=== PATIENT | male | born 1970 | race African-American/Black ===

== ENCOUNTER 2021-11-26 13:35 | Inpatient (IN) | payer OTHER ==
[2021-11-26] MEDS ORDERED: MAGNESIUM HYDROX 2400MG/30ML ORAL SUSPENSION 30 ML CUP PO PRN (16:30)
[2021-11-26] MEDS ORDERED: BISMUTH SUBSALICYLATE 524 MG/30 ML PO PRN (16:30)
[2021-11-26] MEDS ORDERED: ONDANSETRON *ODT* 4 MG TABLET SL PRN (16:30)
[2021-11-26] MEDS ORDERED: MAGNESIUM CITRATE 300 ML BOTTLE PO PRN (16:30)
[2021-11-26] MEDS ORDERED: DICYCLOMINE HCL 10 MG CAPSULE PO PRN (16:30)
[2021-11-26] MEDS ORDERED: IBUPROFEN 600 MG TABLET (FP) PO PRN (16:30)
[2021-11-26] MEDS ORDERED: IBUPROFEN 400 MG TABLET (FP) PO PRN (16:30)
[2021-11-26] MEDS ORDERED: BENZOCAINE/MENTHOL (CHLORASEPTIC ) LOZENGE MM PRN (16:30)
[2021-11-26] MEDS ORDERED: LOPERAMIDE HCL 2 MG CAPSULE PO PRN (16:30)
[2021-11-26] MEDS ORDERED: MAG HYDROX/AL HYDROX/SIMETH 30 ML UNIT-DOSE CUP PO PRN (16:30)
[2021-11-26] MEDS ORDERED: ACETAMINOPHEN 325 MG TABLET (FP) PO PRN ×2 (16:30)
[2021-11-26] MEDS ORDERED: METHOCARBAMOL 500 MG TABLET PO PRN (16:30)
[2021-11-26] MEDS ORDERED: chlordiazePOXIDE HCL 25 MG CAPSULE PO PRN (16:30)
[2021-11-26 17:21] VITALS: BMI 25.0
[2021-11-26] MEDS ORDERED: hydrOXYzine PAMOATE 25 MG CAPSULE (FP) PO SCH (18:00)
[2021-11-26] MEDS: chlordiazePOXIDE HCL 25 MG CAPSULE PO SCH ×2 (19:20→22:35)
[2021-11-26] MEDS: MELATONIN 5 MG TABLETS PO SCH (22:35)
[2021-11-26] MEDS: THIAMINE HCL 100 MG TABLET (FP) PO SCH (22:35)
[2021-11-27] MEDS: chlordiazePOXIDE HCL 25 MG CAPSULE PO SCH ×4 (05:51→23:33)
[2021-11-27 10:28] LABS: HEMATOCRIT 37.2 % (35.4-49); HEMOGLOBIN 12.6 GM/dL (11.7-16.9); MCHC 33.9 g/dl (32.0-35.9); MEAN CELL VOLUME 82.6 fl (80-96); MEAN PLT VOLUME 7.6 fl (7.5-11.1); PLATELET COUNT 259 10^3/uL (134-434); RBC 4.51 M/mm3 (4.00-5.60); RDW 13.9 % (11.9-15.9); WHITE BLOOD COUNT 4.5 K/mm3 (4.0-10.0)
[2021-11-27] MEDS: PRENATAL VITAMINS W/ FOLIC ACID TABLET (FP) PO SCH (10:33)
[2021-11-27] MEDS: SULFAMETHOXAZOLE/TRIMETHOPRIM 800MG/160MG D.S. TABLET PO SCH (10:34)
[2021-11-27] MEDS: ESCITALOPRAM OXALATE 10 MG TABLET PO SCH (10:34)
[2021-11-27] MEDS: TAMSULOSIN HCL 0.4 MG CAP PO SCH (10:35)
[2021-11-27] MEDS: BICTEGRAV/EMTRICIT/TENOFOV (BIKTARVY) 50-200-25 MG TABLET PO SCH (10:35)
[2021-11-27 10:56] LABS: ALBUMIN 2.7 g/dl (3.4-5.0); BLOOD UREA NITROGEN 10.7 mg/dL (7-18); CALCIUM 8.7 mg/dL (8.5-10.1)
[2021-11-27] MEDS: CLOTRIMAZOLE 10 MG TROCHE PO SCH ×4 (10:56→23:33)
[2021-11-27 10:59] LABS: CREATININE 0.9 mg/dL (0.55-1.3)
[2021-11-27 11:01] LABS: BILIRUBIN,TOTAL 0.5 mg/dL (0.2-1); TOT PROT 6.8 g/dl (6.4-8.2)
[2021-11-27] MEDS: MELATONIN 5 MG TABLETS PO SCH (23:32)
[2021-11-27] MEDS: THIAMINE HCL 100 MG TABLET (FP) PO SCH (23:33)
[2021-11-28] MEDS: CLOTRIMAZOLE 10 MG TROCHE PO SCH ×5 (06:28→22:59)
[2021-11-28] MEDS: chlordiazePOXIDE HCL 25 MG CAPSULE PO SCH ×4 (06:28→23:00)
[2021-11-28] MEDS: BICTEGRAV/EMTRICIT/TENOFOV (BIKTARVY) 50-200-25 MG TABLET PO SCH (07:26)
[2021-11-28] MEDS: PRENATAL VITAMINS W/ FOLIC ACID TABLET (FP) PO SCH (11:09)
[2021-11-28] MEDS: ESCITALOPRAM OXALATE 10 MG TABLET PO SCH (11:12)
[2021-11-28] MEDS: SULFAMETHOXAZOLE/TRIMETHOPRIM 800MG/160MG D.S. TABLET PO SCH (11:12)
[2021-11-28] MEDS: TAMSULOSIN HCL 0.4 MG CAP PO SCH (11:12)
[2021-11-28] MEDS ORDERED: NYSTATIN 500,000 UNITS/5 ML SUSPENSION PO SCH (12:00)
[2021-11-28] MEDS: NYSTATIN 500,000 UNITS/5 ML SUSPENSION PO SCH ×2 (18:24→22:59)
[2021-11-28] MEDS: MELATONIN 5 MG TABLETS PO SCH (22:58)
[2021-11-28] MEDS: THIAMINE HCL 100 MG TABLET (FP) PO SCH (22:58)
[2021-11-29] MEDS ORDERED: chlordiazePOXIDE HCL 10 MG CAPSULE PO PRN
[2021-11-29] MEDS: chlordiazePOXIDE HCL 10 MG CAPSULE PO SCH ×5 (06:37→23:28)
[2021-11-29] MEDS: CLOTRIMAZOLE 10 MG TROCHE PO SCH ×5 (06:38→21:54)
[2021-11-29] MEDS: BICTEGRAV/EMTRICIT/TENOFOV (BIKTARVY) 50-200-25 MG TABLET PO SCH (07:28)
[2021-11-29] MEDS: PRENATAL VITAMINS W/ FOLIC ACID TABLET (FP) PO SCH (10:34)
[2021-11-29] MEDS: TAMSULOSIN HCL 0.4 MG CAP PO SCH (10:34)
[2021-11-29] MEDS: NYSTATIN 500,000 UNITS/5 ML SUSPENSION PO SCH ×2 (10:34→21:54)
[2021-11-29] MEDS: SULFAMETHOXAZOLE/TRIMETHOPRIM 800MG/160MG D.S. TABLET PO SCH (10:34)
[2021-11-29] MEDS: ESCITALOPRAM OXALATE 10 MG TABLET PO SCH (10:34)
[2021-11-29] MEDS: THIAMINE HCL 100 MG TABLET (FP) PO SCH (21:55)
[2021-11-29] MEDS: MELATONIN 5 MG TABLETS PO SCH (22:03)
[2021-11-30 06:37] VITALS: RESP 18
[2021-11-30] MEDS: CLOTRIMAZOLE 10 MG TROCHE PO SCH ×5 (07:03→22:18)
[2021-11-30] MEDS: chlordiazePOXIDE HCL 10 MG CAPSULE PO SCH ×2 (07:04→17:50)
[2021-11-30] MEDS: BICTEGRAV/EMTRICIT/TENOFOV (BIKTARVY) 50-200-25 MG TABLET PO SCH (07:04)
[2021-11-30] MEDS: PRENATAL VITAMINS W/ FOLIC ACID TABLET (FP) PO SCH (10:20)
[2021-11-30] MEDS: NYSTATIN 500,000 UNITS/5 ML SUSPENSION PO SCH ×2 (10:20→22:18)
[2021-11-30] MEDS: SULFAMETHOXAZOLE/TRIMETHOPRIM 800MG/160MG D.S. TABLET PO SCH (10:20)
[2021-11-30] MEDS: ESCITALOPRAM OXALATE 10 MG TABLET PO SCH (10:20)
[2021-11-30] MEDS: TAMSULOSIN HCL 0.4 MG CAP PO SCH (10:20)
[2021-11-30] MEDS: THIAMINE HCL 100 MG TABLET (FP) PO SCH (22:18)
[2021-11-30] MEDS: MELATONIN 5 MG TABLETS PO SCH (22:19)
[2021-12-01] MEDS ORDERED: chlordiazePOXIDE HCL 10 MG CAPSULE PO ONE (05:00)
[2021-12-01] MEDS: CLOTRIMAZOLE 10 MG TROCHE PO SCH ×5 (07:57→23:28)
[2021-12-01] MEDS: BICTEGRAV/EMTRICIT/TENOFOV (BIKTARVY) 50-200-25 MG TABLET PO SCH (07:58)
[2021-12-01] MEDS ORDERED: AZITHROMYCIN 600 MG TABLET PO SCH (10:00)
[2021-12-01] MEDS: SULFAMETHOXAZOLE/TRIMETHOPRIM 800MG/160MG D.S. TABLET PO SCH (11:13)
[2021-12-01] MEDS: TAMSULOSIN HCL 0.4 MG CAP PO SCH (11:13)
[2021-12-01] MEDS: ESCITALOPRAM OXALATE 10 MG TABLET PO SCH (11:13)
[2021-12-01] MEDS: NYSTATIN 500,000 UNITS/5 ML SUSPENSION PO SCH ×2 (11:14→23:28)
[2021-12-01] MEDS: PRENATAL VITAMINS W/ FOLIC ACID TABLET (FP) PO SCH (11:15)
[2021-12-01] MEDS: MELATONIN 5 MG TABLETS PO SCH (23:28)
[2021-12-01] MEDS: THIAMINE HCL 100 MG TABLET (FP) PO SCH (23:28)
[2021-12-02] MEDS ORDERED: chlordiazePOXIDE HCL 10 MG CAPSULE PO ONE (06:00)
[2021-12-02] MEDS: CLOTRIMAZOLE 10 MG TROCHE PO SCH (07:03)
[2021-12-02] MEDS: BICTEGRAV/EMTRICIT/TENOFOV (BIKTARVY) 50-200-25 MG TABLET PO SCH (07:04)
[2021-12-02 09:08] VITALS: BP 134/75; PULSE 95; TEMP 97.3
[2021-12-02] MEDS: TAMSULOSIN HCL 0.4 MG CAP PO SCH (09:27)
[2021-12-02] MEDS: SULFAMETHOXAZOLE/TRIMETHOPRIM 800MG/160MG D.S. TABLET PO SCH (09:27)
[2021-12-02] MEDS: PRENATAL VITAMINS W/ FOLIC ACID TABLET (FP) PO SCH (09:28)
[2021-12-02] MEDS: ESCITALOPRAM OXALATE 10 MG TABLET PO SCH (09:28)
[2021-12-02] MEDS: NYSTATIN 500,000 UNITS/5 ML SUSPENSION PO SCH (09:28)
== END 2021-12-02 09:36 | disposition home or self-care (01) | DRG 774 ==
LOC: YASAS 13:35 → Y3N 16:51
PROVIDERS: ADMIT Allergy & Immunology; ATTEND Surgery
PROC: HZ2ZZZZ Detoxification Services for Substance Abuse Treatment (ICD-10-PCS; principal; 2021-11-26)
DX: F10.230 Alcohol dependence with withdrawal, uncomplicated (principal); F14.20 Cocaine dependence, uncomplicated; F32.A Depression, unspecified; Z21 Asymptomatic human immunodeficiency virus [HIV] infection status; B37.0 Candidal stomatitis; N40.0 Benign prostatic hyperplasia without lower urinary tract symptoms; R73.9 Hyperglycemia, unspecified; Z20.822 Contact with and (suspected) exposure to COVID-19; Z86.59 Personal history of other mental and behavioral disorders; Z91.410 Personal history of adult physical and sexual abuse
CPT/HCPCS: 36415; 80053; 82947; 83036; 85027; 86780; 87811; 93005; 93010; C9803-CS; U0003; U0005

== ENCOUNTER 2021-12-17 13:09 | Inpatient (IN) | payer OTHER ==
[2021-12-17 15:03] VITALS: BMI 23.6
[2021-12-18] MEDS ORDERED: BENZOCAINE/MENTHOL (CHLORASEPTIC ) LOZENGE MM PRN (00:48)
[2021-12-18] MEDS ORDERED: guaiFENesin 200 MG/10 ML 10 ML UNIT-DOSE CUPS PO PRN (00:48)
[2021-12-18] MEDS ORDERED: NICOTINE POLACRILEX 2 MG GUM BUC PRN (00:48)
[2021-12-18] MEDS ORDERED: IBUPROFEN 400 MG TABLET (FP) PO PRN (00:48)
[2021-12-18] MEDS ORDERED: P-EPHED 60MG/TRIPROLIDI 2.5MG TABLET PO PRN (00:48)
[2021-12-18] MEDS ORDERED: MAGNESIUM CITRATE 300 ML BOTTLE PO PRN (00:48)
[2021-12-18] MEDS ORDERED: MAG HYDROX/AL HYDROX/SIMETH 30 ML UNIT-DOSE CUP PO PRN (00:48)
[2021-12-18] MEDS ORDERED: LOPERAMIDE HCL 2 MG CAPSULE PO PRN (00:48)
[2021-12-18] MEDS ORDERED: MAGNESIUM HYDROX 2400MG/30ML ORAL SUSPENSION 30 ML CUP PO PRN (00:48)
[2021-12-18] MEDS ORDERED: NICOTINE 14 MG/24 HOURS TOPICAL PATCH TD SCH (10:00)
[2021-12-18] MEDS: PRENATAL VITAMINS W/ FOLIC ACID TABLET (FP) PO SCH (10:36)
[2021-12-18] MEDS: MELATONIN 5 MG TABLETS PO SCH (21:35)
[2021-12-18] MEDS: THIAMINE HCL 100 MG TABLET (FP) PO SCH (21:35)
[2021-12-19] MEDS: PRENATAL VITAMINS W/ FOLIC ACID TABLET (FP) PO SCH (10:20)
[2021-12-19] MEDS: MUPIROCIN 2% TOPICAL OINTMENT 22 GM TUBE TP SCH ×2 (16:06→21:47)
[2021-12-19] MEDS: THIAMINE HCL 100 MG TABLET (FP) PO SCH (21:47)
[2021-12-19] MEDS: MELATONIN 5 MG TABLETS PO SCH (21:47)
[2021-12-20] MEDS: PRENATAL VITAMINS W/ FOLIC ACID TABLET (FP) PO SCH (10:25)
[2021-12-20] MEDS: ACETAMINOPHEN 325 MG TABLET (FP) PO PRN (10:26)
[2021-12-20] MEDS: MUPIROCIN 2% TOPICAL OINTMENT 22 GM TUBE TP SCH ×3 (10:28→21:18)
[2021-12-20 11:34] LABS: HEMATOCRIT 41.9 % (35.4-49); HEMOGLOBIN 13.4 GM/dL (11.7-16.9); MCH 27.1 pg (25.7-33.7); MCHC 31.9 g/dl (32.0-35.9); MEAN CELL VOLUME 84.9 fl (80-96); MEAN PLT VOLUME 8.4 fl (7.5-11.1); PLATELET COUNT 292 10^3/uL (134-434); RBC 4.93 M/mm3 (4.00-5.60); RDW 14.5 % (11.9-15.9); WHITE BLOOD COUNT 4.9 K/mm3 (4.0-10.0)
[2021-12-20 11:49] LABS: CALCIUM 9.1 mg/dL (8.5-10.1)
[2021-12-20 11:52] LABS: ALBUMIN 2.9 g/dl (3.4-5.0); BLOOD UREA NITROGEN 12.2 mg/dL (7-18)
[2021-12-20 11:54] LABS: CREATININE 0.9 mg/dL (0.55-1.3)
[2021-12-20 11:56] LABS: BILIRUBIN,TOTAL 0.4 mg/dL (0.2-1)
[2021-12-20 12:54] LABS: ANISOCYTOSIS 2+; MACROCYTOSIS 0; TEAR DROP CELLS 1+
[2021-12-20] MEDS: hydrOXYzine PAMOATE 25 MG CAPSULE (FP) PO PRN (21:18)
[2021-12-20] MEDS: THIAMINE HCL 100 MG TABLET (FP) PO SCH (21:18)
[2021-12-20] MEDS: MELATONIN 5 MG TABLETS PO SCH (21:18)
[2021-12-21] MEDS: MUPIROCIN 2% TOPICAL OINTMENT 22 GM TUBE TP SCH ×3 (01:00→22:03)
[2021-12-21] MEDS: ACETAMINOPHEN 325 MG TABLET (FP) PO PRN (09:33)
[2021-12-21] MEDS: PRENATAL VITAMINS W/ FOLIC ACID TABLET (FP) PO SCH (09:33)
[2021-12-21] MEDS: hydrOXYzine PAMOATE 25 MG CAPSULE (FP) PO PRN (22:03)
[2021-12-21] MEDS: MELATONIN 5 MG TABLETS PO SCH (22:03)
[2021-12-21] MEDS: THIAMINE HCL 100 MG TABLET (FP) PO SCH (22:03)
[2021-12-22] MEDS: MUPIROCIN 2% TOPICAL OINTMENT 22 GM TUBE TP SCH ×3 (06:22→21:39)
[2021-12-22] MEDS: PRENATAL VITAMINS W/ FOLIC ACID TABLET (FP) PO SCH (10:26)
[2021-12-22] MEDS: ACETAMINOPHEN 325 MG TABLET (FP) PO PRN (10:27)
[2021-12-22] MEDS: SULFAMETHOXAZOLE/TRIMETHOPRIM 800MG/160MG D.S. TABLET PO SCH (14:52)
[2021-12-22] MEDS: TAMSULOSIN HCL 0.4 MG CAP PO SCH (14:52)
[2021-12-22] MEDS: BICTEGRAV/EMTRICIT/TENOFOV (BIKTARVY) 50-200-25 MG TABLET PO SCH (14:52)
[2021-12-22] MEDS: AZITHROMYCIN 600 MG TABLET PO SCH (14:53)
[2021-12-22] MEDS: RILPIVIRINE HCL 25 MG TABLET PO SCH (14:54)
[2021-12-22] MEDS: THIAMINE HCL 100 MG TABLET (FP) PO SCH (21:39)
[2021-12-22] MEDS: MELATONIN 5 MG TABLETS PO SCH (21:40)
[2021-12-23] MEDS: MUPIROCIN 2% TOPICAL OINTMENT 22 GM TUBE TP SCH ×3 (07:37→22:21)
[2021-12-23] MEDS: PRENATAL VITAMINS W/ FOLIC ACID TABLET (FP) PO SCH (10:39)
[2021-12-23] MEDS: RILPIVIRINE HCL 25 MG TABLET PO SCH (10:39)
[2021-12-23] MEDS: TAMSULOSIN HCL 0.4 MG CAP PO SCH (10:39)
[2021-12-23] MEDS: SULFAMETHOXAZOLE/TRIMETHOPRIM 800MG/160MG D.S. TABLET PO SCH (10:39)
[2021-12-23] MEDS: BICTEGRAV/EMTRICIT/TENOFOV (BIKTARVY) 50-200-25 MG TABLET PO SCH (10:39)
[2021-12-23 11:25] LABS: EPI CELLS 5 /uL (0-25.1); HYALINE CASTS 0 /uL (0-3.1); URINE APPEARANCE CLEAR; URINE BACTERIA 42 /uL (0-1359); URINE BILIRUBIN NEGATIVE (NEGATIVE); URINE COLOR YELLOW; URINE GLUCOSE (UA) NEGATIVE (NEGATIVE); URINE KETONE NEGATIVE (NEGATIVE); URINE LEUK ESTERASE TRACE (NEGATIVE); URINE NITRITE NEGATIVE (NEGATIVE); URINE PROTEIN NEGATIVE (NEGATIVE); URINE RBC 1 /uL (0-23.9); URINE UROBILINOGEN 0.2 mg/dL (0.2-1.0); URINE WBC 9 /uL (0-25.8)
[2021-12-23] MEDS: THIAMINE HCL 100 MG TABLET (FP) PO SCH (21:06)
[2021-12-23] MEDS: MELATONIN 5 MG TABLETS PO SCH (21:07)
[2021-12-24] MEDS: MUPIROCIN 2% TOPICAL OINTMENT 22 GM TUBE TP SCH ×3 (07:41→22:16)
[2021-12-24] MEDS: PRENATAL VITAMINS W/ FOLIC ACID TABLET (FP) PO SCH (10:37)
[2021-12-24] MEDS: RILPIVIRINE HCL 25 MG TABLET PO SCH (10:37)
[2021-12-24] MEDS: BICTEGRAV/EMTRICIT/TENOFOV (BIKTARVY) 50-200-25 MG TABLET PO SCH (10:37)
[2021-12-24] MEDS: SULFAMETHOXAZOLE/TRIMETHOPRIM 800MG/160MG D.S. TABLET PO SCH (10:38)
[2021-12-24] MEDS: TAMSULOSIN HCL 0.4 MG CAP PO SCH (10:39)
[2021-12-24] MEDS: THIAMINE HCL 100 MG TABLET (FP) PO SCH (21:10)
[2021-12-24] MEDS: MELATONIN 5 MG TABLETS PO SCH (21:10)
[2021-12-25] MEDS: MUPIROCIN 2% TOPICAL OINTMENT 22 GM TUBE TP SCH ×3 (07:22→21:16)
[2021-12-25] MEDS: TAMSULOSIN HCL 0.4 MG CAP PO SCH (10:28)
[2021-12-25] MEDS: SULFAMETHOXAZOLE/TRIMETHOPRIM 800MG/160MG D.S. TABLET PO SCH (10:28)
[2021-12-25] MEDS: PRENATAL VITAMINS W/ FOLIC ACID TABLET (FP) PO SCH (10:28)
[2021-12-25] MEDS: BICTEGRAV/EMTRICIT/TENOFOV (BIKTARVY) 50-200-25 MG TABLET PO SCH (10:28)
[2021-12-25] MEDS: RILPIVIRINE HCL 25 MG TABLET PO SCH (10:29)
[2021-12-25] MEDS: MELATONIN 5 MG TABLETS PO SCH (21:16)
[2021-12-25] MEDS: THIAMINE HCL 100 MG TABLET (FP) PO SCH (21:16)
[2021-12-26] MEDS: MUPIROCIN 2% TOPICAL OINTMENT 22 GM TUBE TP SCH ×3 (08:05→22:07)
[2021-12-26] MEDS: RILPIVIRINE HCL 25 MG TABLET PO SCH (10:20)
[2021-12-26] MEDS: BICTEGRAV/EMTRICIT/TENOFOV (BIKTARVY) 50-200-25 MG TABLET PO SCH (10:20)
[2021-12-26] MEDS: PRENATAL VITAMINS W/ FOLIC ACID TABLET (FP) PO SCH (10:20)
[2021-12-26] MEDS: SULFAMETHOXAZOLE/TRIMETHOPRIM 800MG/160MG D.S. TABLET PO SCH (10:20)
[2021-12-26] MEDS: TAMSULOSIN HCL 0.4 MG CAP PO SCH (10:20)
[2021-12-26] MEDS: ACETAMINOPHEN 325 MG TABLET (FP) PO PRN (21:58)
[2021-12-26] MEDS: THIAMINE HCL 100 MG TABLET (FP) PO SCH (21:58)
[2021-12-26] MEDS: MELATONIN 5 MG TABLETS PO SCH (21:58)
[2021-12-27] MEDS: MUPIROCIN 2% TOPICAL OINTMENT 22 GM TUBE TP SCH ×3 (06:42→22:20)
[2021-12-27] MEDS: SULFAMETHOXAZOLE/TRIMETHOPRIM 800MG/160MG D.S. TABLET PO SCH (10:17)
[2021-12-27] MEDS: BICTEGRAV/EMTRICIT/TENOFOV (BIKTARVY) 50-200-25 MG TABLET PO SCH (10:17)
[2021-12-27] MEDS: PRENATAL VITAMINS W/ FOLIC ACID TABLET (FP) PO SCH (10:17)
[2021-12-27] MEDS: RILPIVIRINE HCL 25 MG TABLET PO SCH (10:18)
[2021-12-27] MEDS: TAMSULOSIN HCL 0.4 MG CAP PO SCH (10:19)
[2021-12-27] MEDS: THIAMINE HCL 100 MG TABLET (FP) PO SCH (21:47)
[2021-12-27] MEDS: MELATONIN 5 MG TABLETS PO SCH (21:47)
[2021-12-27] MEDS: ACETAMINOPHEN 325 MG TABLET (FP) PO PRN (21:48)
[2021-12-28] MEDS: MUPIROCIN 2% TOPICAL OINTMENT 22 GM TUBE TP SCH ×3 (06:26→21:48)
[2021-12-28] MEDS: TAMSULOSIN HCL 0.4 MG CAP PO SCH (08:19)
[2021-12-28] MEDS: BICTEGRAV/EMTRICIT/TENOFOV (BIKTARVY) 50-200-25 MG TABLET PO SCH (10:03)
[2021-12-28] MEDS: PRENATAL VITAMINS W/ FOLIC ACID TABLET (FP) PO SCH (10:03)
[2021-12-28] MEDS: RILPIVIRINE HCL 25 MG TABLET PO SCH (10:03)
[2021-12-28] MEDS: SULFAMETHOXAZOLE/TRIMETHOPRIM 800MG/160MG D.S. TABLET PO SCH (10:03)
[2021-12-28] MEDS: MELATONIN 5 MG TABLETS PO SCH (21:47)
[2021-12-28] MEDS: THIAMINE HCL 100 MG TABLET (FP) PO SCH (21:48)
[2021-12-29] MEDS: MUPIROCIN 2% TOPICAL OINTMENT 22 GM TUBE TP SCH ×3 (06:09→21:52)
[2021-12-29] MEDS: TAMSULOSIN HCL 0.4 MG CAP PO SCH (07:37)
[2021-12-29] MEDS: SULFAMETHOXAZOLE/TRIMETHOPRIM 800MG/160MG D.S. TABLET PO SCH (10:31)
[2021-12-29] MEDS: BICTEGRAV/EMTRICIT/TENOFOV (BIKTARVY) 50-200-25 MG TABLET PO SCH (10:31)
[2021-12-29] MEDS: PRENATAL VITAMINS W/ FOLIC ACID TABLET (FP) PO SCH (10:31)
[2021-12-29] MEDS: RILPIVIRINE HCL 25 MG TABLET PO SCH (10:32)
[2021-12-29] MEDS: AZITHROMYCIN 600 MG TABLET PO SCH (14:03)
[2021-12-29] MEDS: THIAMINE HCL 100 MG TABLET (FP) PO SCH (21:51)
[2021-12-29] MEDS: MELATONIN 5 MG TABLETS PO SCH (21:51)
[2021-12-30] MEDS: MUPIROCIN 2% TOPICAL OINTMENT 22 GM TUBE TP SCH ×3 (06:26→21:52)
[2021-12-30] MEDS: PRENATAL VITAMINS W/ FOLIC ACID TABLET (FP) PO SCH (10:02)
[2021-12-30] MEDS: TAMSULOSIN HCL 0.4 MG CAP PO SCH (10:02)
[2021-12-30] MEDS: RILPIVIRINE HCL 25 MG TABLET PO SCH (10:02)
[2021-12-30] MEDS: BICTEGRAV/EMTRICIT/TENOFOV (BIKTARVY) 50-200-25 MG TABLET PO SCH (10:02)
[2021-12-30] MEDS: SULFAMETHOXAZOLE/TRIMETHOPRIM 800MG/160MG D.S. TABLET PO SCH (10:02)
[2021-12-30] MEDS: NYSTATIN 500,000 UNITS/5 ML SUSPENSION PO SCH (17:42)
[2021-12-30] MEDS: THIAMINE HCL 100 MG TABLET (FP) PO SCH (21:35)
[2021-12-30] MEDS: MELATONIN 5 MG TABLETS PO SCH (21:35)
[2021-12-31] MEDS: MUPIROCIN 2% TOPICAL OINTMENT 22 GM TUBE TP SCH ×3 (07:11→21:49)
[2021-12-31] MEDS: NYSTATIN 500,000 UNITS/5 ML SUSPENSION PO SCH ×4 (07:11→17:20)
[2021-12-31 07:23] VITALS: RESP 18
[2021-12-31] MEDS: TAMSULOSIN HCL 0.4 MG CAP PO SCH (10:16)
[2021-12-31] MEDS: PRENATAL VITAMINS W/ FOLIC ACID TABLET (FP) PO SCH (10:16)
[2021-12-31] MEDS: BICTEGRAV/EMTRICIT/TENOFOV (BIKTARVY) 50-200-25 MG TABLET PO SCH (10:16)
[2021-12-31] MEDS: SULFAMETHOXAZOLE/TRIMETHOPRIM 800MG/160MG D.S. TABLET PO SCH (10:17)
[2021-12-31] MEDS: RILPIVIRINE HCL 25 MG TABLET PO SCH (10:17)
[2021-12-31] MEDS: THIAMINE HCL 100 MG TABLET (FP) PO SCH (21:49)
[2021-12-31] MEDS: MELATONIN 5 MG TABLETS PO SCH (21:49)
[2022-01-01] MEDS: NYSTATIN 500,000 UNITS/5 ML SUSPENSION PO SCH ×4 (00:48→17:06)
[2022-01-01] MEDS: MUPIROCIN 2% TOPICAL OINTMENT 22 GM TUBE TP SCH ×3 (06:41→21:45)
[2022-01-01] MEDS: SULFAMETHOXAZOLE/TRIMETHOPRIM 800MG/160MG D.S. TABLET PO SCH (09:50)
[2022-01-01] MEDS: PRENATAL VITAMINS W/ FOLIC ACID TABLET (FP) PO SCH (09:50)
[2022-01-01] MEDS: TAMSULOSIN HCL 0.4 MG CAP PO SCH (09:50)
[2022-01-01] MEDS: BICTEGRAV/EMTRICIT/TENOFOV (BIKTARVY) 50-200-25 MG TABLET PO SCH (09:50)
[2022-01-01] MEDS: RILPIVIRINE HCL 25 MG TABLET PO SCH (09:51)
[2022-01-01] MEDS: MELATONIN 5 MG TABLETS PO SCH (21:44)
[2022-01-01] MEDS: THIAMINE HCL 100 MG TABLET (FP) PO SCH (21:44)
[2022-01-02] MEDS: NYSTATIN 500,000 UNITS/5 ML SUSPENSION PO SCH ×4 (01:19→17:17)
[2022-01-02] MEDS: MUPIROCIN 2% TOPICAL OINTMENT 22 GM TUBE TP SCH ×3 (06:32→21:38)
[2022-01-02] MEDS: TAMSULOSIN HCL 0.4 MG CAP PO SCH (08:06)
[2022-01-02] MEDS: BICTEGRAV/EMTRICIT/TENOFOV (BIKTARVY) 50-200-25 MG TABLET PO SCH (10:10)
[2022-01-02] MEDS: PRENATAL VITAMINS W/ FOLIC ACID TABLET (FP) PO SCH (10:10)
[2022-01-02] MEDS: RILPIVIRINE HCL 25 MG TABLET PO SCH (10:10)
[2022-01-02] MEDS: SULFAMETHOXAZOLE/TRIMETHOPRIM 800MG/160MG D.S. TABLET PO SCH (10:10)
[2022-01-02] MEDS: MELATONIN 5 MG TABLETS PO SCH (21:37)
[2022-01-02] MEDS: THIAMINE HCL 100 MG TABLET (FP) PO SCH (21:37)
[2022-01-03] MEDS: NYSTATIN 500,000 UNITS/5 ML SUSPENSION PO SCH ×4 (01:21→21:54)
[2022-01-03] MEDS: MUPIROCIN 2% TOPICAL OINTMENT 22 GM TUBE TP SCH ×3 (07:52→21:55)
[2022-01-03] MEDS: PRENATAL VITAMINS W/ FOLIC ACID TABLET (FP) PO SCH (10:02)
[2022-01-03] MEDS: TAMSULOSIN HCL 0.4 MG CAP PO SCH (10:03)
[2022-01-03] MEDS: RILPIVIRINE HCL 25 MG TABLET PO SCH (10:03)
[2022-01-03] MEDS: SULFAMETHOXAZOLE/TRIMETHOPRIM 800MG/160MG D.S. TABLET PO SCH (10:03)
[2022-01-03] MEDS: BICTEGRAV/EMTRICIT/TENOFOV (BIKTARVY) 50-200-25 MG TABLET PO SCH (10:03)
[2022-01-03] MEDS: ACETAMINOPHEN 325 MG TABLET (FP) PO PRN (18:03)
[2022-01-03] MEDS: THIAMINE HCL 100 MG TABLET (FP) PO SCH (21:55)
[2022-01-03] MEDS: MELATONIN 5 MG TABLETS PO SCH (21:55)
[2022-01-04] MEDS: NYSTATIN 500,000 UNITS/5 ML SUSPENSION PO SCH ×5 (00:53→23:21)
[2022-01-04] MEDS: MUPIROCIN 2% TOPICAL OINTMENT 22 GM TUBE TP SCH ×3 (07:23→21:42)
[2022-01-04] MEDS: SULFAMETHOXAZOLE/TRIMETHOPRIM 800MG/160MG D.S. TABLET PO SCH (10:19)
[2022-01-04] MEDS: BICTEGRAV/EMTRICIT/TENOFOV (BIKTARVY) 50-200-25 MG TABLET PO SCH (10:19)
[2022-01-04] MEDS: PRENATAL VITAMINS W/ FOLIC ACID TABLET (FP) PO SCH (10:19)
[2022-01-04] MEDS: TAMSULOSIN HCL 0.4 MG CAP PO SCH (10:19)
[2022-01-04] MEDS: ACETAMINOPHEN 325 MG TABLET (FP) PO PRN ×2 (10:20→13:47)
[2022-01-04] MEDS: RILPIVIRINE HCL 25 MG TABLET PO SCH (10:20)
[2022-01-04] MEDS: THIAMINE HCL 100 MG TABLET (FP) PO SCH (21:42)
[2022-01-04] MEDS: MELATONIN 5 MG TABLETS PO SCH (21:42)
[2022-01-05] MEDS: MUPIROCIN 2% TOPICAL OINTMENT 22 GM TUBE TP SCH ×3 (05:48→21:41)
[2022-01-05] MEDS: NYSTATIN 500,000 UNITS/5 ML SUSPENSION PO SCH ×3 (05:48→17:16)
[2022-01-05] MEDS: SULFAMETHOXAZOLE/TRIMETHOPRIM 800MG/160MG D.S. TABLET PO SCH (10:02)
[2022-01-05] MEDS: BICTEGRAV/EMTRICIT/TENOFOV (BIKTARVY) 50-200-25 MG TABLET PO SCH (10:02)
[2022-01-05] MEDS: TAMSULOSIN HCL 0.4 MG CAP PO SCH (10:02)
[2022-01-05] MEDS: PRENATAL VITAMINS W/ FOLIC ACID TABLET (FP) PO SCH (10:02)
[2022-01-05] MEDS: RILPIVIRINE HCL 25 MG TABLET PO SCH (10:04)
[2022-01-05] MEDS: ACETAMINOPHEN 325 MG TABLET (FP) PO PRN (11:40)
[2022-01-05] MEDS: AZITHROMYCIN 600 MG TABLET PO SCH (14:22)
[2022-01-05] MEDS: MELATONIN 5 MG TABLETS PO SCH (21:40)
[2022-01-05] MEDS: THIAMINE HCL 100 MG TABLET (FP) PO SCH (21:41)
[2022-01-06] MEDS: NYSTATIN 500,000 UNITS/5 ML SUSPENSION PO SCH ×3 (01:17→13:13)
[2022-01-06] MEDS: MUPIROCIN 2% TOPICAL OINTMENT 22 GM TUBE TP SCH ×3 (07:07→21:31)
[2022-01-06] MEDS: PRENATAL VITAMINS W/ FOLIC ACID TABLET (FP) PO SCH (09:51)
[2022-01-06] MEDS: TAMSULOSIN HCL 0.4 MG CAP PO SCH (09:51)
[2022-01-06] MEDS: SULFAMETHOXAZOLE/TRIMETHOPRIM 800MG/160MG D.S. TABLET PO SCH (09:51)
[2022-01-06] MEDS: BICTEGRAV/EMTRICIT/TENOFOV (BIKTARVY) 50-200-25 MG TABLET PO SCH (09:51)
[2022-01-06] MEDS: RILPIVIRINE HCL 25 MG TABLET PO SCH (09:52)
[2022-01-06] MEDS: MELATONIN 5 MG TABLETS PO SCH (21:31)
[2022-01-06] MEDS: THIAMINE HCL 100 MG TABLET (FP) PO SCH (21:31)
[2022-01-07] MEDS: MUPIROCIN 2% TOPICAL OINTMENT 22 GM TUBE TP SCH ×3 (06:51→21:17)
[2022-01-07] MEDS: ACETAMINOPHEN 325 MG TABLET (FP) PO PRN (07:36)
[2022-01-07] MEDS: BICTEGRAV/EMTRICIT/TENOFOV (BIKTARVY) 50-200-25 MG TABLET PO SCH (10:01)
[2022-01-07] MEDS: SULFAMETHOXAZOLE/TRIMETHOPRIM 800MG/160MG D.S. TABLET PO SCH (10:01)
[2022-01-07] MEDS: PRENATAL VITAMINS W/ FOLIC ACID TABLET (FP) PO SCH (10:01)
[2022-01-07] MEDS: TAMSULOSIN HCL 0.4 MG CAP PO SCH (10:01)
[2022-01-07] MEDS: RILPIVIRINE HCL 25 MG TABLET PO SCH (10:02)
[2022-01-07] MEDS: MELATONIN 5 MG TABLETS PO SCH (21:16)
[2022-01-07] MEDS: THIAMINE HCL 100 MG TABLET (FP) PO SCH (21:17)
[2022-01-08] MEDS: MUPIROCIN 2% TOPICAL OINTMENT 22 GM TUBE TP SCH ×3 (06:00→22:07)
[2022-01-08] MEDS: PRENATAL VITAMINS W/ FOLIC ACID TABLET (FP) PO SCH (10:22)
[2022-01-08] MEDS: SULFAMETHOXAZOLE/TRIMETHOPRIM 800MG/160MG D.S. TABLET PO SCH (10:22)
[2022-01-08] MEDS: BICTEGRAV/EMTRICIT/TENOFOV (BIKTARVY) 50-200-25 MG TABLET PO SCH (10:22)
[2022-01-08] MEDS: TAMSULOSIN HCL 0.4 MG CAP PO SCH (10:22)
[2022-01-08] MEDS: RILPIVIRINE HCL 25 MG TABLET PO SCH (10:23)
[2022-01-08] MEDS: MELATONIN 5 MG TABLETS PO SCH (22:07)
[2022-01-08] MEDS: THIAMINE HCL 100 MG TABLET (FP) PO SCH (22:07)
[2022-01-09] MEDS: MUPIROCIN 2% TOPICAL OINTMENT 22 GM TUBE TP SCH ×3 (06:39→21:36)
[2022-01-09] MEDS: PRENATAL VITAMINS W/ FOLIC ACID TABLET (FP) PO SCH (10:42)
[2022-01-09] MEDS: SULFAMETHOXAZOLE/TRIMETHOPRIM 800MG/160MG D.S. TABLET PO SCH (10:42)
[2022-01-09] MEDS: TAMSULOSIN HCL 0.4 MG CAP PO SCH (10:42)
[2022-01-09] MEDS: BICTEGRAV/EMTRICIT/TENOFOV (BIKTARVY) 50-200-25 MG TABLET PO SCH (10:42)
[2022-01-09] MEDS: RILPIVIRINE HCL 25 MG TABLET PO SCH (10:43)
[2022-01-09] MEDS: MELATONIN 5 MG TABLETS PO SCH (21:35)
[2022-01-09] MEDS: THIAMINE HCL 100 MG TABLET (FP) PO SCH (21:35)
[2022-01-10] MEDS: MUPIROCIN 2% TOPICAL OINTMENT 22 GM TUBE TP SCH ×3 (05:48→21:38)
[2022-01-10] MEDS: PRENATAL VITAMINS W/ FOLIC ACID TABLET (FP) PO SCH (10:21)
[2022-01-10] MEDS: SULFAMETHOXAZOLE/TRIMETHOPRIM 800MG/160MG D.S. TABLET PO SCH (10:22)
[2022-01-10] MEDS: TAMSULOSIN HCL 0.4 MG CAP PO SCH (10:22)
[2022-01-10] MEDS: RILPIVIRINE HCL 25 MG TABLET PO SCH (10:22)
[2022-01-10] MEDS: BICTEGRAV/EMTRICIT/TENOFOV (BIKTARVY) 50-200-25 MG TABLET PO SCH (10:22)
[2022-01-10] MEDS: THIAMINE HCL 100 MG TABLET (FP) PO SCH (21:38)
[2022-01-10] MEDS: MELATONIN 5 MG TABLETS PO SCH (21:38)
[2022-01-11] MEDS: MUPIROCIN 2% TOPICAL OINTMENT 22 GM TUBE TP SCH ×3 (07:10→21:46)
[2022-01-11] MEDS: BICTEGRAV/EMTRICIT/TENOFOV (BIKTARVY) 50-200-25 MG TABLET PO SCH (10:07)
[2022-01-11] MEDS: TAMSULOSIN HCL 0.4 MG CAP PO SCH (10:07)
[2022-01-11] MEDS: SULFAMETHOXAZOLE/TRIMETHOPRIM 800MG/160MG D.S. TABLET PO SCH (10:07)
[2022-01-11] MEDS: PRENATAL VITAMINS W/ FOLIC ACID TABLET (FP) PO SCH (10:07)
[2022-01-11] MEDS: RILPIVIRINE HCL 25 MG TABLET PO SCH (10:08)
[2022-01-11] MEDS: MELATONIN 5 MG TABLETS PO SCH (21:46)
[2022-01-11] MEDS: THIAMINE HCL 100 MG TABLET (FP) PO SCH (21:46)
[2022-01-12] MEDS: MUPIROCIN 2% TOPICAL OINTMENT 22 GM TUBE TP SCH ×3 (07:09→21:47)
[2022-01-12 07:25] VITALS: TEMP 97.8
[2022-01-12] MEDS: SULFAMETHOXAZOLE/TRIMETHOPRIM 800MG/160MG D.S. TABLET PO SCH (10:38)
[2022-01-12] MEDS: TAMSULOSIN HCL 0.4 MG CAP PO SCH (10:38)
[2022-01-12] MEDS: PRENATAL VITAMINS W/ FOLIC ACID TABLET (FP) PO SCH (10:38)
[2022-01-12] MEDS: BICTEGRAV/EMTRICIT/TENOFOV (BIKTARVY) 50-200-25 MG TABLET PO SCH (10:38)
[2022-01-12] MEDS: RILPIVIRINE HCL 25 MG TABLET PO SCH (10:39)
[2022-01-12] MEDS: AZITHROMYCIN 600 MG TABLET PO SCH (14:13)
[2022-01-12] MEDS: MELATONIN 5 MG TABLETS PO SCH (21:47)
[2022-01-12] MEDS: THIAMINE HCL 100 MG TABLET (FP) PO SCH (21:48)
[2022-01-13] MEDS: MUPIROCIN 2% TOPICAL OINTMENT 22 GM TUBE TP SCH (07:06)
[2022-01-13 07:32] VITALS: BP 131/89; PULSE 92
[2022-01-13] MEDS: PRENATAL VITAMINS W/ FOLIC ACID TABLET (FP) PO SCH (09:44)
[2022-01-13] MEDS: TAMSULOSIN HCL 0.4 MG CAP PO SCH (09:45)
[2022-01-13] MEDS: BICTEGRAV/EMTRICIT/TENOFOV (BIKTARVY) 50-200-25 MG TABLET PO SCH (09:45)
[2022-01-13] MEDS: RILPIVIRINE HCL 25 MG TABLET PO SCH (09:45)
[2022-01-13] MEDS: SULFAMETHOXAZOLE/TRIMETHOPRIM 800MG/160MG D.S. TABLET PO SCH (09:45)
[2022-01-13] MEDS ORDERED: BICTEGRAV/EMTRICIT/TENOFOV (BIKTARVY) 50-200-25 MG TABLET PO SCH (11:33)
== END 2022-01-13 09:46 | disposition home or self-care (01) | DRG 772 ==
LOC: YASAS 13:09 → Y5N 22:42
PROVIDERS: ADMIT Allergy & Immunology; ATTEND Psychiatry & Neurology Pain Medicine
PROC: HZ42ZZZ Group Counseling for Substance Abuse Treatment, Cognitive-Behavioral (ICD-10-PCS; principal; 2021-12-17)
DX: F10.20 Alcohol dependence, uncomplicated (principal); F14.20 Cocaine dependence, uncomplicated; F19.24 Other psychoactive substance dependence with psychoactive substance-induced mood disorder; Z21 Asymptomatic human immunodeficiency virus [HIV] infection status; B37.0 Candidal stomatitis; K13.0 Diseases of lips; N40.0 Benign prostatic hyperplasia without lower urinary tract symptoms; R73.9 Hyperglycemia, unspecified; Z20.822 Contact with and (suspected) exposure to COVID-19
CPT/HCPCS: 36415; 80053; 81003; 85025; C9803-CS; U0003; U0005